=== PATIENT | female | born 1940 | race Caucasian/White ===

== ENCOUNTER 2024-08-12 20:34 | Emergency (ER) | payer MEDICARE, BC, SELFPAY ==
[2024-08-12 20:43] VITALS: BP 159/102; PULSE 94; RESP 16; TEMP 36.7; O2SAT 97; BMI 26.1
--- NOTE | 2024-08-12 21:02 | CRLHL7_ITS ---
For Patients: As a result of the Century Cures Act, medical imaging exams and procedure reports are released immediately into your electronic medical record. You may view this report before your referring provider. If you have questions, please contact your health care provider. Indication: Vomiting, cough. Technique: Abdomen 2 view. Comparison: None. Findings/Impression: Bowel: Bowel pattern is normal. No findings to suggest a bowel obstruction. Soft tissues: No sign of free air. No sign of soft tissue mass. No suspicious calcifications. Bones: No acute abnormalities. Moderate left hip joint arthrosis. Thoracolumbar levoscoliosis. Partially visualized right total hip arthroplasty. A thin radiopaque band projects over the central pelvis, of uncertain etiology and location, but could be external to the patient. Dictated by Jj Almonte MD @ 08/12/2024 10:17:31 PM (Electronically Signed)
--- NOTE | 2024-08-12 21:02 | CRLHL7_ITS ---
For Patients: As a result of the Century Cures Act, medical imaging exams and procedure reports are released immediately into your electronic medical record. You may view this report before your referring provider. If you have questions, please contact your health care provider. Indication: Chest pain. Technique: Chest 2 views. Comparison: None. Findings/Impression: Cardiovascular and mediastinum: Heart size and vasculature are normal in caliber and appearance. Mild aortic arch calcifications. Lungs and pleural spaces: Lungs are clear. No sign of infiltrate or mass. No sign of pleural effusion. No pneumothorax. Bones and soft tissues: No significant findings. Dictated by Jj Almonte MD @ 08/12/2024 10:13:21 PM (Electronically Signed)
--- NOTE | 2024-08-12 21:04 | ED.GENADULT ---
HPI - General Adult General Chief complaint: Nausea/Vomiting Stated complaint: vomiting/dehydration Time Seen by Provider: 08/12/24 20:36 Source: patient Mode of arrival: ambulatory Limitations: no limitations History of Present Illness HPI narrative: Patient is an 83-year-old female presenting today not feeling well. Patient states that she has not been feeling well since March of this year. She states that she has had a significant loss of appetite and she has lost about 30 lb over the summer and early fall. She complains of feeling fatigued with no energy. She states that in March she had an episode where she felt very ill and started vomiting and was diagnosed with a UTI. She states that since then she has had bladder leakage and has to use Vagifem and Detrol. She states that 4 days ago she started vomiting again. She vomited on night multiple times. She states that she was okay Tuesday and Tuesday but then this evening which is Tuesday, started vomiting again. Denies any blood in the vomitus. Vomitus is a light brown color. She states that she has problems with constipation and had a very large bowel movement on , has had small bowel movements the remainder of the weekend. She feels like she is quite backed up. She denies fevers or chills. She does complain of epigastric pain and a burning sensation into her chest. She states that she often has a lot of phlegm in her mouth and she coughs on and off. Patient does summer here and spends the remainder of the year in a different state where her primary care physician is. She states that she has no significant past medical history aside from bladder issues, knee replacement and hip replacement. She uses the Vagifem and Detrol as her only medications. Family history significant for coronary artery disease in her father who at the age of 60. She does have children in the area. She denies lower abdominal pain. She has chronic urinary frequency and has to urinate about 4 times per night which has been going on for ?years?. She has no dysuria or blood in her urine. Related Data Home Medications ?Medication ?Instructions ?Recorded ?Confirmed No Known Home Medications 08/12/24 08/12/24 Allergies Allergy/AdvReac Type Severity Reaction Status Date / Time No Known Drug Allergies Allergy Verified 08/12/24 20:45 Review of Systems Status of ROS: Reports: 10 or more systems reviewed and unremarkable except as noted in History and below [facility] Social History Smoking Status: Never smoker Do you use any of these nicotine containing products: None Second hand tobacco smoke exposure: No How often do you have a drink containing alcohol: never AUDIT-C Alcohol total score: 0 Non-prescribed substance use: denies use service: No Exam Narrative: Exam Narrative: Well-nourished well-developed patient in no acute distress. Alert and oriented. Answers questions appropriately. Mood and affect are appropriate. Thoughts are goal oriented and rational. No tangential or magical thinking noted. Patient speaks in full sentences without needing to catch her breath. HEENT: Normocephalic atraumatic. Pupils are equally round reactive to light. Extraocular muscles are intact. Conjunctivae are moist without any icterus noted. Slightly dry mucous membranes. Posterior pharynx is normal. Neck is soft without any lymphadenopathy or thyromegaly. No masses are appreciated. Cardiovascular: Heart is regular rate and rhythm S1 and S2 are present without any murmurs. Lungs: Clear to auscultation bilaterally no wheezes rhonchi or rales are appreciated. Patient takes deep breaths without any discomfort. Abdomen: Soft and nondistended with hyperactive bowel sounds. She does have mild epigastric discomfort. Negative [place] sign. She does have suprapubic fullness without pain. Extremities: Bilateral lower extremities are without edema. Normal DP and PT pulses. Skin: Well perfused without any obvious rashes. Const: Vital Signs, click to edit/add: Vital Signs - 24 hr 08/12/24 20:43 Temperature 98.0 F Pulse Rate [Pulse Oximeter] 94 Respiratory Rate 16 Blood Pressure [Ri ght Upper Arm] 159/102 H Pulse Oximetry 97 Oxygen Delivery Me thod Room Air Course Course ED Course: Differential diagnosis is quite broad at this time in ranges from UTI to gastric ulcer to gastroenteritis to constipation. Significant weight loss also noted, unclear etiology. Therefore, workup will be broad. EKG, read by me, shows normal sinus rhythm with a first-degree AV block. Pulse is 84, left axis deviation with a nonspecific intraventricular block. CBC is entirely normal. Lactate is normal at 1.1. [place] screen is negative. UA shows trace blood and 5-10 wbc's, however it also shows moderate squamous epithelial cells. Sodium is slightly low 134, potassium slightly low at 3.4. Remainder of chemistries are unremarkable. Normal LFTs. Negative troponin. Normal CRP. Normal lipase. Negative triple swab. TSH is normal. Both chest and abdominal x-rays, both read by me, did not show any acute pathology. Radiologic over-read in agreement. Patient receive sublingual Zofran which helped with her symptoms and she was able to drink water here and did not have any further vomiting while she was in the ER. Vital Signs Vital signs: Initial Vital Signs Temperature 98.0 F 08/12/24 20:43 Temperature Source Temporal Artery Scan 08/12/24 20:43 Pulse Rate 94 08/12/24 20:43 Respiratory Rate 16 08/12/24 20:43 Blood Pressure 159/102 H 08/12/24 20:43 Blood Pressure Mean 121 H 08/12/24 20:43 Blood Pressure Position Sitting 08/12/24 20:43 Pulse Oximetry 97 08/12/24 20:43 Oxygen Delivery Method Room Air 08/12/24 20:43 Vital Signs Temperature 98.0 F 08/12/24 20:43 Pulse Rate 94 08/12/24 20:43 Respiratory Rate 16 08/12/24 20:43 Blood Pressure 159/102 H 08/12/24 20:43 Pulse Oximetry 97 08/12/24 20:43 Oxygen Delivery Method Room Air 08/12/24 20:43 Temperature 98.0 F 08/12/24 20:43 Pulse Rate 94 08/12/24 20:43 Respiratory Rate 16 08/12/24 20:43 Blood Pressure 159/102 H 08/12/24 20:43 Pulse Oximetry 97 08/12/24 20:43 Oxygen Delivery Method Room Air 08/12/24 20:43 Medications Administered Medications: Generic Name Dose Route Start Last Admin Trade Name Freq PRN Reason Stop Dose Admin Ondansetron HCl 4 mg 08/12/24 21:01 08/12/24 21:12 Ondansetron Odt 4 Mg Tab PO 08/12/24 21:02 4 mg ONCE ONE Administration Medical Decision Making MDM Narrative Medical decision making narrative: 83-year-old female not feeling well, vomiting on and off for the last 4 days. Weight loss over the summer. Increased fatigue. No acute findings to suggest an etiology at this time. This could be a viral gastroenteritis, gastritis. Etiology of weight loss is unclear. I recommend she start a daily omeprazole and follow up with her primary care provider. When I make this recommendation patient tells me that she is already on omeprazole and that she stop taking it 10 days ago. Recommend she restart it. Lab Data Lab results reviewed: Yes I reviewed the patient's lab results Labs: Lab Results 08/12/24 08/12/24 08/12/24 Range/Units 21:02 21:03 21:08 WBC (4.50-11.00) K/uL RBC (4.00-5.20) m/uL Hgb (12.0-16.0) gm/dL Hct (33.0-51.0) % MCV (80-100) fL MCH (26-34) pg MCHC (32-36) gm/dL RDW Coeff of Ruiz (11.5-15.5) % Plt Count (140-440) K/uL Neut % (Auto) (42.0-72.0) % Lymph % (Auto) (20-44) % [place] % (Auto) (0.0-11.0) % Eos % (Auto) (0.0-7.0) % Baso % (Auto) (0.0-3.0) % Neut # (Auto) (1.7-7.0) K/uL Lymph # (Auto) (0.90-2.90) K/uL [place] # (Auto) (0.00-0.90) K/UL Eos # (Auto) (0.00-0.50) K/uL Baso # (Auto) (0.00-0.30) K/uL Abs Immat Gran (auto) (0.00-0.30) K/uL Imm/Tot Granulo (auto) % Sodium (135-149) mmol/L Potassium (3.6-5.1) mmol/L Chloride (96-114) mmol/L Carbon Dioxide (20-32) mmol/L Anion Gap (7-15) mEq/L BUN (7-30) mg/dL Creatinine (0.5-1.5) mg/dL Estimated Creat Clear Estimated GFR ml/min Glucose (60-115) mg/dL Lactate 1.1 (0.5-1.9) mmol/L Calcium (8.4-10.6) mg/dL Total Bilirubin (0.1-1.5) mg/dL Direct Bilirubin (0.0-0.5) mg/dL AST (12-35) U/L ALT (4-35) U/L Alkaline Phosphatase (40-150) U/L Troponin I (0.01-0.04) ng/mL C-Reactive Protein (0.5-1.0) mg/dL Total Protein (6.0-8.3) g/dL Albumin (3.3-5.0) g/dL Lipase (23-300) U/L TSH (0.270-4.20) uIU/mL Urine Color Yellow (Yellow) Urine Appearance Clear (Clear) Urine pH 6.5 (5.0-8.5) Ur Specific [place] 1.020 (1.000-1.030) Urine Protein Negative (Negative) Urine Glucose (UA) Negative (Negative) Urine Ketones Negative (Negative) Urine Blood Trace-intact A (Negative) Urine Nitrite Negative (Negative) Urine Bilirubin Negative (Negative) Urine Urobilinogen 0.2 (0.2-1.0) Ur Leukocyte Esterase Negative (Negative) Urine RBC 0-2 (0-2) Urine WBC 5-10 A (0-5) Ur Squamous Epith Cells Moderate A (None-Few) Urine Bacteria Many A (None) SARS-CoV-2 (PCR) Negative SARS-CoV-2 (Negative) Monoscreen (Negative) Influenza Type A (PCR) Negative PCR FLU A (Negative) Influenza Type B (PCR) Negative PCR FLU B (Negative) RSV (PCR) Negative PCR RSV (Negative) 08/12/24 Range/Units 21:15 WBC 6.68 (4.50-11.00) K/uL RBC 4.63 (4.00-5.20) m/uL Hgb 13.9 (12.0-16.0) gm/dL Hct 42.1 (33.0-51.0) % MCV 91 (80-100) fL MCH 30 (26-34) pg MCHC 33 (32-36) gm/dL RDW Coeff of Ruiz 12.0 (11.5-15.5) % Plt Count 273 (140-440) K/uL Neut % (Auto) 61.8 (42.0-72.0) % Lymph % (Auto) 27.1 (20-44) % [place] % (Auto) 9.0 (0.0-11.0) % Eos % (Auto) 1.5 (0.0-7.0) % Baso % (Auto) 0.6 (0.0-3.0) % Neut # (Auto) 4.13 (1.7-7.0) K/uL Lymph # (Auto) 1.81 (0.90-2.90) K/uL [place] # (Auto) 0.60 (0.00-0.90) K/UL Eos # (Auto) 0.10 (0.00-0.50) K/uL Baso # (Auto) 0.04 (0.00-0.30) K/uL Abs Immat Gran (auto) 0.00 (0.00-0.30) K/uL Imm/Tot Granulo (auto) 0.0 % Sodium 134 L (135-149) mmol/L Potassium 3.4 L (3.6-5.1) mmol/L Chloride 97 (96-114) mmol/L Carbon Dioxide 26 (20-32) mmol/L Anion Gap 11 (7-15) mEq/L BUN 18 (7-30) mg/dL Creatinine 0.9 (0.5-1.5) mg/dL Estimated Creat Clear 37.01 Estimated GFR 63 ml/min Glucose 143 H (60-115) mg/dL Lactate (0.5-1.9) mmol/L Calcium 9.7 (8.4-10.6) mg/dL Total Bilirubin 0.3 (0.1-1.5) mg/dL Direct Bilirubin 0.1 (0.0-0.5) mg/dL AST 32 (12-35) U/L ALT 14 (4-35) U/L Alkaline Phosphatase 44 (40-150) U/L Troponin I < 0.01 L (0.01-0.04) ng/mL C-Reactive Protein < 0.5 L (0.5-1.0) mg/dL Total Protein 8.1 (6.0-8.3) g/dL Albumin 4.9 (3.3-5.0) g/dL Lipase 98 (23-300) U/L TSH 4.120 (0.270-4.20) uIU/mL Urine Color (Yellow) Urine Appearance (Clear) Urine pH (5.0-8.5) Ur Specific [place] (1.000-1.030) Urine Protein (Negative) Urine Glucose (UA) (Negative) Urine Ketones (Negative) Urine Blood (Negative) Urine Nitrite (Negative) Urine Bilirubin (Negative) Urine Urobilinogen (0.2-1.0) Ur Leukocyte Esterase (Negative) Urine RBC (0-2) Urine WBC (0-5) Ur Squamous Epith Cells (None-Few) Urine Bacteria (None) SARS-CoV-2 (PCR) (Negative) Monoscreen Negative (Negative) Influenza Type A (PCR) (Negative) Influenza Type B (PCR) (Negative) RSV (PCR) (Negative) Imaging Data Chest x-ray: Attestation: I have reviewed the pertinent imaging results. Radiologist's impression: Chest 2 views. Comparison: None. Findings/Impression: Cardiovascular and mediastinum: Heart size and vasculature are normal in caliber and appearance. Mild aortic arch calcifications. Lungs and pleural spaces: Lungs are clear. No sign of infiltrate or mass. No sign of pleural effusion. No pneumothorax. Bones and soft tissues: No significant findings. Abdominal x-ray: Attestation: I have reviewed the pertinent imaging results. Radiologist's impression: Abdomen 2 view. Comparison: None. Findings/Impression: Bowel: Bowel pattern is normal. No findings to suggest a bowel obstruction. Soft tissues: No sign of free air. No sign of soft tissue mass. No suspicious calcifications. Bones: No acute abnormalities. Moderate left hip joint arthrosis. Thoracolumbar levoscoliosis. Partially visualized right total hip arthroplasty. A thin radiopaque band projects over the central pelvis, of uncertain etiology and location, but could be external to the patient. ECG Data Attestation: I personally reviewed and interpreted this ECG as follows: Discharge Plan Discharge Clinical Impression: Vomiting, Fatigue, Unintentional weight loss Patient Disposition: Home, Self-Care Condition: Stable Additional Instructions: Your workup today did not find any acute findings to suggest the cause of your symptoms. It could be that you have a viral stomach bug causing vomiting. The discomfort in your stomach is also concerning for potential gastric reflux which is when there was too much acid in the stomach. I do recommend you re-started daily omeprazole, this can be purchased [id number]. You should start to feel a little bit of relief in your stomach in a few days. You should also follow-up with your primary care provider to start a workup as to why you have lost so much weight this summer. If you develop a fever, vomiting to the point where you can not keep anything down, abdominal pain or chest pain, then you should return to the emergency room. We will send you home today with a copy of all your labs and the reports of your x-ray so you can share these with your primary care doctor. Prescriptions: No Action No Known Home Medications Follow Up/Referrals: Provider,Not a Local [Primary Care Provider] - Stand Alone Forms: [employer] Info Instructions
[2024-08-12] MEDS: ONDANSETRON ODT 4 MG TAB PO (21:12)
[2024-08-12 21:22] LABS: Lactate* 1.1 mmol/L (0.5-1.9)
[2024-08-12 21:27] LABS: Basophils Absolute Auto 0.04 K/uL (0.00-0.30); Basophils Percent Auto 0.6 % (0.0-3.0); Eosinophils Percent Auto 1.5 % (0.0-7.0); Hematocrit 42.1 % (33.0-51.0); Hemoglobin* 13.9 gm/dL (12.0-16.0); Lymphocytes Absolute Auto 1.81 K/uL (0.90-2.90); Lymphocytes Percent Auto 27.1 % (20-44); Mean Corpuscular HGB Conc 33 gm/dL (32-36); Mean Corpuscular Hemoglobin 30 pg (26-34); Mean Corpuscular Volume 91 fL (80-100); Neutrophils Absolute Auto 4.13 K/uL (1.7-7.0); Neutrophils Percent Auto 61.8 % (42.0-72.0); Platelet Count* 273 K/uL (140-440); Red Blood Count 4.63 m/uL (4.00-5.20); White Blood Count* 6.68 K/uL (4.50-11.00)
[2024-08-12 21:27] LABS: Appearance Urine Clear (Clear); Bilirubin Urine Negative (Negative); Blood Urine Trace-intact (Negative); Color Urine Yellow (Yellow); Glucose Urine Negative (Negative); Ketones Urine Negative (Negative); Leukocyte Esterase Urine Negative (Negative); Nitrite Urine Negative (Negative); Protein Urine Negative (Negative); Urobilinogen Urine 0.2 (0.2-1.0); pH Urine 6.5 (5.0-8.5)
[2024-08-12 21:29] LABS: Mono Screen* Negative (Negative); Slide Review Reflex No
[2024-08-12 21:42] LABS: Bacteria Urine Many; RBC Urine 0-2 (0-2); Squamous Epithelial Cell Urine Moderate (None-Few)
[2024-08-12 21:42] LABS: Albumin* 4.9 g/dL (3.3-5.0); Chloride* 97 mmol/L (96-114); Potassium* 3.4 mmol/L (3.6-5.1); Sodium* 134 mmol/L (135-149)
[2024-08-12 21:44] LABS: Creatinine* 0.9 mg/dL (0.5-1.5); Est. Creatinine Clearance* 37.01; Estimated Glomerular Filt Rate 63 ml/min
[2024-08-12 21:45] LABS: Alkaline Phosphatase* 44 U/L (40-150); Anion Gap 11 mEq/L (7-15); Aspartate Amino Transferase* 32 U/L (12-35); Bilirubin Direct* 0.1 mg/dL (0.0-0.5); Bilirubin Total* 0.3 mg/dL (0.1-1.5); Blood Urea Nitrogen* 18 mg/dL (7-30); Carbon Dioxide* 26 mmol/L (20-32); Total Protein* 8.1 g/dL (6.0-8.3)
[2024-08-12 21:46] LABS: Alanine Aminotransferase* 14 U/L (4-35); Calcium* 9.7 mg/dL (8.4-10.6); Glucose* 143 mg/dL (60-115); Lipase* 98 U/L (23-300)
[2024-08-12 21:51] LABS: C Reactive Protein* < 0.5 mg/dL (0.5-1.0)
[2024-08-12 21:58] LABS: Troponin I* < 0.01 ng/mL (0.01-0.04)
[2024-08-12 22:05] LABS: PCR FLU A Negative PCR FLU A (Negative); PCR FLU B Negative PCR FLU B (Negative); PCR RSV Negative PCR RSV (Negative); SARS PCR* Negative SARS-CoV-2 (Negative)
== END 2024-08-12 22:55 | disposition home or self-care (01) ==
PROVIDERS: Emergency Provider Family Medicine
DX: R63.4 Abnormal weight loss (principal); R53.83 Other fatigue; R11.10 Vomiting, unspecified
CPT/HCPCS: 36415; 71046; 74019; 80048; 80076; 81001; 83605; 83690; 84443; 84484; 85025; 86140; 86308; 87086; 87186; 87631; 93005; 99284; 99285; A9270